=== PATIENT | male | born 1995 | race Caucasian/White ===

== ENCOUNTER 2022-01-16 20:33 | Emergency (ER) | payer OTHER ==
[~2022-01-16] VITALS: Ht 180.3 cm; Wt 99.8 kg
[2022-01-16 20:35] VITALS: BP_SYST 114
--- NOTE | 2022-01-16 20:40 | NUR ---
Placed in room 3 . Placed on mainspring strip gauger, blood pressure machine and pulse oximeter. To gown for exam. Side rails up. Report given to Marlene CARMONA([email or web address]).
[2022-01-16] MEDS ORDERED: NACL 0.9% 1,000 ML IV ONE (20:45)
[2022-01-16] MEDS ORDERED: levETIRAcetam 1,000 MG IV BAG 100 ML IV ONE (20:45)
[2022-01-16 21:12] LABS: BASOPHILS % (AUTO) 0.4 % (0.0-2.0); EOSINOPHILS # (AUTO) 0.2 K/uL (0.0-0.4); EOSINOPHILS % (AUTO) 4.5 % (0.0-4.0); HEMATOCRIT 42.6 % (36-54); LYMPHOCYTES # (AUTO) 1.9 K/uL (1.0-5.5); LYMPHOCYTES % (AUTO) 36.6 % (20.5-51.5); MEAN CORPUSCULAR VOLUME 87 fL (79.0-98.0); MONOCYTES # (AUTO) 0.3 K/uL (0.0-1.0); MONOCYTES % (AUTO) 6.6 % (1.7-9.3); NEUTROPHILS # (AUTO) 2.7 K/uL (1.8-7.7); NEUTROPHILS % (AUTO) 51.9 % (40.0-70.0); PLATELET COUNT (AUTO) 174 K/uL (130-430); RED CELL DISTRIBUTION WIDTH 13.3 % (9.0-15.0); WHITE BLOOD COUNT (AUTO) 5.1 K/uL (4.8-10.8)
--- NOTE | 2022-01-16 21:16 | NUR ---
pt taken to ct
--- NOTE | 2022-01-16 21:16 | NUR ---
C/O 1ST SZ TODAY, REPORTS WARMING UP FOOD IN MICROWAVE AND THEN FALLING TO FLOOR DUE TO SZ. PER EMS PT HAD ANOTHER SZ DURING TRANSPORT. 1ST SZ WAS WITTNESS BY MOM. PT HAS A SMALL ABRASION TO LEFT UPPER EYELID, NO ACTIVE BLEEDING. PT REPORT GENERALIZED BODY PAIN 5/10. DENIES HEADACHE, CHEST PAIN, SOB. PMH: HIV +
[2022-01-16 21:35] LABS: ANION GAP 10 (5-15); CALCIUM 8.5 mg/dL (8.4-11.0); CHLORIDE 106 mmol/L (98-107); CREATININE 1.31 mg/dL (0.55-1.30); GLUCOSE 112 mg/dL (70-99); POTASSIUM 3.6 mmol/L (3.5-5.1); UREA NITROGEN, BLOOD 10 mg/dL (8-21)
[2022-01-16 21:49] LABS: ALANINE AMINOTRANSFERASE 56 U/L (12-78); ALBUMIN 3.5 g/dL (3.4-4.8); ASPARTATE AMINOTRANSFERASE 34 U/L (10-37); TOTAL BILIRUBIN 0.4 mg/dL (0.0-1.0)
[2022-01-16 22:11] LABS: GFR AFRICAN AMERICAN 85 mL/min (>90)
[2022-01-16 22:12] LABS: ALCOHOL, BLOOD < 3 mg/dL (<10)
--- NOTE | 2022-01-16 23:01 | NUR ---
PT RESTING, NO ACUTE DISTRESS, MOTHER AT BEDSIDE, VSS
[2022-01-17 00:17] LABS: CANNABINOID, URINE POSITIVE (NEG <=50)
[2022-01-17 00:18] LABS: BARBITURATE, URINE NEGATIVE (NEG <=200); BENZODIAZEPINE, URINE NEGATIVE (NEG <=150); COCAINE, URINE NEGATIVE (NEG <=150); METHAMPHETAMINES SCREEN,URINE NEGATIVE (NEG <=500); OPIATE, URINE NEGATIVE (NEG <=100); PHENCYCLIDINE SCREEN,URINE NEGATIVE (NEG <=25); UR TRICYCLIC ANTIDEPRESSANTS NEGATIVE (NEG <=300); URINE AMPHETAMINE NEGATIVE (NEG <=500); URINE METHADONE NEGATIVE (NEG <=200); URINE OXYCODONE SCREEN NEGATIVE (NEG <=100); URINE PROPOXYPHENE SCREEN NEGATIVE (NEG <=300)
--- NOTE | 2022-01-17 01:43 | NUR ---
PT RESTING, NO ACUTE DISTRESS, MOTHER AT BEDSIDE, VSS
[2022-01-17] MEDS ORDERED: DIPHTH,PERTUSS(ACELL),TET VAC 0.5 ML VIAL (Tdap) I.M. ONE (02:00)
[2022-01-17 03:30] VITALS: BP_SYST 131
--- NOTE | 2022-01-17 03:30 | NUR ---
Patient given written and verbal discharge instructions and verbalizes understanding. ER MD discussed with patient the results and treatment provided. Patient in stable condition. ID arm band removed. IV catheter removed intact and dressing applied, no active bleeding.Opportunity for questions provided and answered.
== END 2022-01-17 03:30 | disposition home or self-care (01) ==
LOC: SED 20:33
DX: R56.9 Unspecified convulsions (principal); R11.10 Vomiting, unspecified; Z79.899 Other long term (current) drug therapy
CPT/HCPCS: 99284; 96365; 70450; 96366; 80307; 80053; 82962; 85025; 36415; 76376; G0482; J1953; 90715